=== PATIENT | male | born 1975 | race African-American/Black ===

== ENCOUNTER → 2023-04-16 | Day surgery (SDC) | payer MEDICARE, MEDICAID ==
[~2023-04-16] VITALS: Ht 160 cm; Wt 90.7 kg
[~2023-04-16] MED LIST: ATOR40TA70 PO; BUPIVACAINE HCL/PF 0.5% (5MG/ML) 10ML ONE; FENTANYL CITRATE/PF 50MCG/ML 2ML VIAL ONE; GLYCOPYRROLATE 0.2 MG/ML 2ML VIAL ONE; HYDR-4009 PO; KETOROLAC 30MG/ML VIAL IV NR; LIDOCAINE HCL 1% 10 MG/ML 10ML VIAL ONE; METF-414 PO; MIDAZOLAM HCL 2 MG/2 ML VIAL ONE; NEOSTIGMINE METHYLSULFATE 1MG/ML 10 ML VIAL ONE; POLYMYXIN B SULFATE 500000 UNITS/VIAL ONE; PROPOFOL 200MG/20ML VIAL IV ONE; ROCURONIUM BROMIDE 10MG/ML VIAL 5ML IV ONE; SODIUM CHLORIDE 0.9% 1,000 ML IV SCH; SUCCINYLCHOLINE CHLORIDE 200MG/10ML IV ONE
[2023-04-16] MEDS: HYDROMORPHONE HCL/PF 2MG/ML CPJ IV PRN ×3 (13:15→13:53)
[2023-04-16 14:21] VITALS: BP 147/85; PULSE 78; RESP 21
== END | disposition home or self-care (01) ==
LOC: OR 07:00
PROVIDERS: ATTEND Specialist
DX: K40.20 Bilateral inguinal hernia, without obstruction or gangrene, not specified as recurrent (principal); I10 Essential (primary) hypertension; E78.00 Pure hypercholesterolemia, unspecified; E11.9 Type 2 diabetes mellitus without complications; M19.90 Unspecified osteoarthritis, unspecified site; E66.9 Obesity, unspecified; Z79.84 Long term (current) use of oral hypoglycemic drugs; Z79.899 Other long term (current) drug therapy; Z98.890 Other specified postprocedural states; Z68.35 Body mass index [BMI] 35.0-35.9, adult
CPT/HCPCS: 82962; 88302; 88304; 49505; J3010; J3490 ×5; J1885; J2250; J2710; J2704; J0330; J1170; A4217; Z7610 ×20; C1781